=== PATIENT | female | born 1940 | race Caucasian/White ===

== ENCOUNTER 2018-04-19 15:44 | Emergency (ER) | payer MEDICARE ==
--- NOTE | 2018-04-19 16:29 | RAD ---
PA AND LATERAL CHEST: 04/19/18 INDICATION: History of hypertension and rheumatoid arthritis, bronchitis and shortness of breath. COMPARISON: Prior exam dated 01/15/16. FINDINGS: There is cardiomegaly, pulmonary vascular congestion and bilateral perihilar interstitial prominence. No pleural effusion is grossly evident. IMPRESSION: Cardiomegaly with pulmonary vascular congestion and perihilar interstitial prominence suspicious for CHF. Recommend correlation. Atypical infectious process cannot be entirely excluded. POS: CH[facility]IS
[2018-04-19 16:31] LABS: ALT (SGPT) 16 U/L (8-55); AST (SGOT) 14 U/L (5-34); Albumin 3.7 g/dL (3.4-4.8); Alkaline Phosphatase 92 U/L (40-150); Anion Gap 12 mmol/L (10-20); BUN (Urea Nitrogen) 16 mg/dL (9.8-20.1); Bilirubin, Total 0.8 mg/dL (0.2-1.2); Calc. Creatinine Clearance 0 mL/min (70-130); Calcium 8.9 mg/dL (7.8-10.44); Carbon Dioxide 23 mmol/L (23-31); Chloride 108 mmol/L (98-107); Estimated GFR-MDRD 48; Globulin 3.2 g/dL (2.4-3.5); Glucose 122 mg/dL (83-110); Protein, Total 6.9 g/dL (6.0-8.3); Sodium 139 mmol/L (136-145)
[2018-04-19 16:33] LABS: CKMB 0.8 ng/mL (0-6.6); Troponin I 0.015 ng/mL (< 0.028)
[2018-04-19 16:45] LABS: #Basophils 0.1 thou/uL (0.0-0.2); #Eosinphils 0.1 thou/uL (0.0-0.7); #Monocytes 1.7 thou/uL (0.11-0.59); #Neutrophils 9.4 thou/uL (1.40-6.50); %Basophils 0.8 % (0.0-1.0); %Eosinophils 0.9 % (0.0-10.0); %Lymphocytes 15.1 % (21.0-51.0); %Neutrophils 70.2 % (42.0-75.0); Differential Comment SCANNED; Hemoglobin 14.9 g/dL (12.0-16.0); Mean Corpuscular HGB CONC 32.1 g/dL (32.0-36.0); Mean Corpuscular Hemoglobin 27.3 pg (27.0-31.0); Mean Corpuscular Volume 85.1 fL (78.0-98.0); Mean Platelet Volume 8.6 fL (7.4-10.4); Platelet Count 160 thou/uL (130-400); Red Blood Cell (RBC) Count 5.46 mill/uL (4.20-5.40); White Blood Cell (WBC) Count 13.4 thou/uL (4.8-10.8)
[2018-04-19] MEDS ORDERED: Azithromycin 250 MG TAB ONE (18:24)
--- NOTE | 2018-04-19 18:51 | CT ---
CTA THORAX WITH CONTRAST: 04/19/18 (Computed Tomographic Angiography, chest(noncoronary) with contrast material, and image postprocessin g) (PE protocol) HISTORY: 77-year-old female with elevated D-dimer and dyspnea. TECHNIQUE: IV injection of iodinated contrast: 70 mL Isovue 370 Scan acquisition timing attempted to coincide with iodinated contrast bolus reaching maximal density in pulmonary arteries. 3D MIP reconstructions. FINDINGS: No thoracic aortic aneurysm or dissection. No convincing evidence of pulmonary thromboembolism. At the bases of the bilateral lower lobes, there is moderate to severe honeycombing, and associated m ild diffuse bronchiectasis. Scattered much smaller areas of honeycombing are present more superiorly, abutting the right posterior, right anterior, and right lateral pleural surfaces, at the right upper lobe. Questionable minimal subpleural reticular densities bilaterally, although not classic for UIP/ IPF. Left and right mainstem bronchi and trachea are patent and clear. IMPRESSION: 1. No evidence of pulmonary thromboembolism. 2. Chronic interstitial lung disease, pulmonary fibrosis. Uncertain exact type of pulmonary fibr osis. tatiana[] POS: CHRIS
== END 2018-04-19 18:25 | disposition home or self-care (01) ==
LOC: NAV ERS 15:44
DX: J20.9 Acute bronchitis, unspecified (principal); J84.9 Interstitial pulmonary disease, unspecified; I10 Essential (primary) hypertension; M06.9 Rheumatoid arthritis, unspecified
CPT/HCPCS: 71046; 71275; 80053; 82553; 83880; 84484; 85025; 85379; 93005; 94640; 94760; J7620

== ENCOUNTER 2018-04-21 11:55 | Emergency (ER) | payer MEDICARE ==
[2018-04-21] MEDS ORDERED: predniSONE 20 MG TAB ONE (12:26)
== END 2018-04-21 13:45 | disposition home or self-care (01) ==
LOC: NAV ERS 11:55
DX: J20.9 Acute bronchitis, unspecified (principal); J84.9 Interstitial pulmonary disease, unspecified; I10 Essential (primary) hypertension; J30.2 Other seasonal allergic rhinitis; M06.9 Rheumatoid arthritis, unspecified; Z79.899 Other long term (current) drug therapy
CPT/HCPCS: J7506; J7620

== ENCOUNTER 2021-08-14 00:54 | Emergency (ER) | payer MEDICARE ==
[2021-08-14 01:30] LABS: Hemoglobin 15.8 g/dL (12.0-16.0); Mean Corpuscular HGB CONC 31.1 g/dL (32.0-36.0); Mean Corpuscular Hemoglobin 29.4 pg (27.0-31.0); Mean Corpuscular Volume 94.4 fL (78.0-98.0); Mean Platelet Volume 9.9 fL (7.4-10.4); Platelet Count 112 thou/uL (130-400); RBC Distribution Width 14.5 % (11.5-14.5); Red Blood Cell (RBC) Count 5.38 mill/uL (4.20-5.40); White Blood Cell (WBC) Count 6.6 thou/uL (4.8-10.8)
[2021-08-14] MEDS ORDERED: Sodium Chloride 0.9% 100 ML ONE (01:33)
[2021-08-14] MEDS ORDERED: Diltiazem 125 MG/25 ML ONE (01:33)
[2021-08-14 01:39] LABS: Band 16 % (5-11); Eosinophils 1 % (0-10); Lymphocytes 7 % (21-51); MDiff Complete? YES; Metamyelocyte 4 % (0-0); Monocytes 2 % (0-10); Myelocyte 2 % (0-0); Neutrophil 68 % (42-75); Platelet Morphology Comment Appears Decreased; RBC Morphology Normal
[2021-08-14 01:42] LABS: ALT (SGPT) 17 U/L (8-55); AST (SGOT) 22 U/L (5-34); Albumin 3.6 g/dL (3.4-4.8); Alkaline Phosphatase 92 U/L (40-110); Anion Gap 15 mmol/L (10-20); BUN (Urea Nitrogen) 20 mg/dL (9.8-20.1); Bilirubin, Total 0.6 mg/dL (0.2-1.2); Calc. Creatinine Clearance 0 mL/min (70-130); Calcium 8.8 mg/dL (7.8-10.44); Carbon Dioxide 19 mmol/L (23-31); Chloride 110 mmol/L (98-107); Globulin 3.7 g/dL (2.4-3.5); Glucose 155 mg/dL (83-110); Potassium 4.5 mmol/L (3.5-5.1); Protein, Total 7.3 g/dL (5.8-8.1); Sodium 139 mmol/L (136-145)
[2021-08-14] MEDS ORDERED: Aspirin Chewable 81 MG TAB ONE (01:52)
[2021-08-14] MEDS ORDERED: Sodium Chloride 0.9% 500 ML ONE (01:52)
[2021-08-14] MEDS ORDERED: Enoxaparin Sodium 80 MG/0.8 ML SYRINGE ONE (01:53)
[2021-08-14 02:32] LABS: SARS-CoV-2 NAA Rapid Test DETECTED (NotDetected)
== END 2021-08-14 03:03 | disposition short-term general hospital (02) ==
LOC: NAV ERS 00:54
DX: U07.1 COVID-19 (principal); N17.9 Acute kidney failure, unspecified; I48.91 Unspecified atrial fibrillation; I11.0 Hypertensive heart disease with heart failure; I50.9 Heart failure, unspecified; R79.89 Other specified abnormal findings of blood chemistry; M06.9 Rheumatoid arthritis, unspecified; J30.2 Other seasonal allergic rhinitis; M19.90 Unspecified osteoarthritis, unspecified site; Z79.899 Other long term (current) drug therapy; Z79.891 Long term (current) use of opiate analgesic
CPT/HCPCS: 71045; 80053; 83605; 83880; 84484; 85025; 85379; 93005; 94760; U0002; J1650; J7030